=== PATIENT | male | born 1960 | race Caucasian/White ===

== ENCOUNTER 2018-04-14 21:21 | Emergency (ER) | payer BC ==
[~2018-04-14] VITALS: Ht 185.4 cm; Wt 91.0 kg
[2018-04-14] MEDS ORDERED: ONDANSETRON HCL 4MG/2ML VIAL IV STA (22:37)
[2018-04-14] MEDS ORDERED: ASPIRIN 81MG TABLET PO ONE (22:45)
[2018-04-14 22:48] LABS: CHLORIDE 105 mEq/L (98-107)
[2018-04-14 22:49] LABS: BASOPHILS % 0.1 % (0.0-2.0); EOSINOPHILS % 0.4 % (0.0-5.0); HEMATOCRIT. 39.7 % (42.0-52.0); HEMOGLOBIN. 13.4 g/dL (14.0-18.0); LYMPHOCYTES % 13.5 % (20.0-50.0); MEAN CORPUSCULAR HEMOGLOBIN 31.2 pg (28.0-32.0); MEAN CORPUSCULAR VOLUME 92.3 fL (80.0-94.0); MEAN PLATELET VOLUME 10.1 fl (7.4-10.4); MONOCYTES % 6.6 % (2.0-8.0); NEUTROPHILS % 79.4 % (40.0-76.0); PLATELET 193 x1000/uL (130-400); RED CELL DISTRIBUTION WIDTH 13.7 % (11.6-14.6)
[2018-04-14 22:52] LABS: INR 1.1; PARTIAL THROMBOPLASTIN TIME 23.6 sec (23.4-31.0); PROTHROMBIN TIME 10.6 sec (9.1-11.1)
[2018-04-15 02:49] VITALS: BP 118/74
== END 2018-04-15 02:51 | disposition home or self-care (01) ==
LOC: ER 04-15 01:12
DX: R07.89 Other chest pain (principal); R00.0 Tachycardia, unspecified
CPT/HCPCS: 36415; 71045; 80053; 83880; 84484; 85025; 85379; 85610; 85730; 93005; 96374; 99285; J2405; Z7610